=== PATIENT | female | born 1960 | race Caucasian/White ===

== ENCOUNTER 2017-03-05 19:18 | Inpatient (IN) | payer OTHER ==
[~2017-03-05] VITALS: Ht 162.6 cm; Wt 54.9 kg
[2017-03-05] MEDS ORDERED: HYDR2TAB4 PO (19:37)
[2017-03-05] MEDS ORDERED: VALIUM (19:37)
[2017-03-05] MEDS ORDERED: METO25TA6 PO (19:37)
[2017-03-05] MEDS ORDERED: IBUP-1957 PO (19:37)
--- NOTE | 2017-03-05 19:39 | NUR ---
PATIENT BIB AMBULANCE FROM [facility] FOR PSYCH EVAL. PATIENT WAS DISCHARGED FROM [facility] EARLIER TONIGHT. PATIENT WAS NOT TOLD SHE IS BEING BROUGHT TO THIS HOSPITAL FOR PSYCH EVAL. PATIENT IS UPSET AND UNCOOPERATIVE AT THIS TIME. PATIENT IS SITTING ON THE AMBULANCE GURNEY AND DOES NOT WANT TO SIT ON HOSPITAL BED. GEAR GENERATOR SET UP OPERATOR CONTACTED AND WILL BE HERE IN 30 MINUTES FOR EVALUATION.
--- NOTE | 2017-03-05 19:40 | NUR ---
PATIENT IS REFUSING TO HAVE BLOOD DRAWN OR VS TAKEN.
--- NOTE | 2017-03-05 20:08 | NUR ---
PATIENT APPEARS CALM AT THIS TIME. SITTING ON [facility] TALKING ON THE PHONE. CRISIS DOWEL MACHINE OPERATOR HERE REVIEWING PATIENT CHART.
--- NOTE | 2017-03-05 20:13 | NUR ---
CRISIS AUTISTIC TEACHER AT BEDSIDE TALKING TO PATIENT.
--- NOTE | 2017-03-05 20:49 | NUR ---
PATIENT IS STILL REFUSING TO HAVE BLOOD WORK DONE.
[2017-03-05 21:25] LABS: BASOPHILS % (AUTO) 0.5 % (0.0-2.0); EOSINOPHILS # (AUTO) 0.4 K/uL (0.0-0.7); EOSINOPHILS % (AUTO) 5.9 % (0.0-7.0); HEMATOCRIT 39.3 % (31.2-41.9); HEMOGLOBIN 13.5 g/dL (10.9-14.3); LYMPHOCYTES # (AUTO) 2.4 K/uL (20.0-40.0); LYMPHOCYTES % (AUTO) 34.7 % (20.5-51.5); MEAN CORPUSCULAR HEMOGLOBIN 31.9 uug (24.7-32.8); MEAN CORPUSCULAR HGB CONC 34 g/dL (32.3-35.6); MEAN CORPUSCULAR VOLUME 92.7 fL (75.5-95.3); MONOCYTES # (AUTO) 0.6 K/uL (2.0-10.0); MONOCYTES % (AUTO) 8.2 % (0.0-11.0); NEUTROPHILS # (AUTO) 3.5 K/uL (1.8-8.9); NEUTROPHILS % (AUTO) 50.7 % (38.5-71.5); PLATELET COUNT (AUTO) 238 K/uL (179-408); RED BLOOD CELL COUNT(AUTO) 4.24 MIL/uL (3.63-4.92); WHITE BLOOD COUNT (AUTO) 6.9 K/uL (3.8-11.8)
[2017-03-05 21:30] LABS: CARBON DIOXIDE 31 mmol/L (21-32); CHLORIDE 105 mmol/L (98-107); CREATININE 0.8 mg/dL (0.6-1.3); GLUCOSE 117 mg/dL (74-106); POTASSIUM 4.1 mmol/L (3.5-5.1); UREA NITROGEN, BLOOD 25 mg/dL (7-18)
--- NOTE | 2017-03-05 21:33 | NUR ---
PATIENT IS UNABLE TO PROVIDE URINE SAMPLE AT THIS TIME.
[2017-03-05 21:36] LABS: ALANINE AMINOTRANSFERASE 56 U/L (14-59); ALKALINE PHOSPHATASE 92 U/L (50-136); ASPARTATE AMINOTRANSFERASE 28 U/L (15-37); BILIRUBIN,DIRECT 0.1 mg/dL (0.0-0.2); BILIRUBIN,TOTAL 0.2 mg/dL (0.2-1.0); TOTAL PROTEIN, SERUM 7.3 g/dL (6.4-8.2)
[2017-03-05 21:37] LABS: ACETAMINOPHEN < 2.0 ug/mL (10-30)
[2017-03-05 21:40] LABS: ETHANOL < 3 MG/DL (0-0)
[2017-03-05 21:59] LABS: THYROID STIMULATING HORMONE 0.991 mIU/mL (0.358-3.740)
--- NOTE | 2017-03-05 22:30 | NUR ---
Pt. admitted to MHU , under care of Dr. CLAUDIO Belongs List completed.
[2017-03-05] MEDS ORDERED: TEMAZEPAM 7.5 MG CAPSULE PO PRN (23:00)
[2017-03-05] MEDS ORDERED: LORAZEPAM 0.5 MG TABLET PO PRN (23:00)
[2017-03-05] MEDS ORDERED: MAG HYDROX/AL HYDROX/SIMETH 30 ML LIQUID UDC PO PRN (23:00)
[2017-03-05] MEDS ORDERED: MAGNESIUM HYDROXIDE 30 ML LIQUID UDC PO PRN (23:00)
[2017-03-05 23:10] VITALS: BP 121/83
[2017-03-05] MEDS ORDERED: LORAZEPAM 0.5 MG TABLET ONE (23:57)
--- NOTE | 2017-03-06 | NUR ---
ADMISSION NOTE: 56 Y.O FEMALE BROUGHT TO MHU ON A 5150 FOR GD. Pt BROUGHT VIA GURNEY ACCOMPANIED BY ER STAFF. ACCORDING TO THE HOLD, Pt WAS PREVIOUSLY AT [facility] AND EXPERIENCING ANXIETY AND DELUSIONAL THINKING. DURING PET ASSESSMENT, Pt WAS PREOCCUPIED WITH DIFFERENT SOMATIC COMPLAINTS (PAIN IN THE BAS EOF HER NECK). Pt STATED THAT A PLASTIC SPEAR IS COMING OUT OF HER SKIN THAT WAS WITNESSED BY HER CAREGIVER. Pt ALSO TALKING ABOUT MOLECULES GOING TO THE CAP OF HER TEETH. Pt THINKS CRYSTAL PARTICLES ARE COMING OUT OF HER BACK. Pt HAS PREVIOUS H/O INPATIENT PSYCHIATRIC TREATMENT IN THE PAST. Pt APPEARS TO REFLECT WHAT IS ON THE HOLD, RN CONCURS WITH HOLD. ADVISEMENT AND PATIENT RIGHTS HANDBOOK GIVEN. UPON FACE TO FACE ASSESSMENT. Pt IS VERY TANGENTIAL, HYPERVERBAL, ANXIOUS, AGITATED, LABILE, TEARFUL, WITH MOMENTS OF SCREAMING AND CRYING. Pt IS A+Ox2 TO NAME AND PLACE, UNABLE TO RECALL DAY OR DATE, BUT IS AWARE OF THE MONTH. Pt IS DELUSIONAL WITH FLIGHT OF IDEAS, WITH A FIXED DELUSION THAT "MEDICAL EQUIPMENT WAS LEFT IN MY SPINE, A PLASTIC TUBE. THE PLASTIC IS NOW COMING OUT OF MY SKIN AND ALSO WHEN I GO TO THE BATHROOM. MY CAREGIVERS, MY PSYCHIATRIST, AND OTHER NURSES HAVE SEEN IT, I'M NOT CRAZY." Pt STATES SHE IS "HERE BECAUSE I HAVE PAIN AND WAS TOLD I WAS GOING TO THE [facility], NOT THE PSYCH UNIT". Pt EXHIBITS PRESSURED SPEECH WITH ALTERNATING FLAT AND SUPERFICIALLY BRIGHT AFFECT. Pt IS FOCUSED ON SOMATIC SYMPTOMS, AND ASKED SEVERAL TIMES FOR HER "DILAUDID SHOT". WHEN TOLD THAT IF THE MD MADE THE DECISION TO ORDER DILAUDID FOR HER, IT WOULD BE GIVEN BY MOUTH, NOT BY SHOT, Pt BECAME HYSTERICAL AND BEGAN SCREAMING AND CRYING. Pt WAS SOMEWHAT CALMED AFTER SHE WAS TOLD THAT SHE WOULD GET DILAUDID (PO) FOR HER "10/10" BACK PAIN. Pt DENIES AH/VH, BUT STATED, "I HEAR GOD'S VOICE. I ALMOST DROWNED ONCE AND IS VOICE SAVE ME". Pt APPEARS EXTREMELY INTERNALLY PREOCCUPIED. Pt DENIES SI/HI, AND CFS. Pt STATED "I'M SAD, NOT DEPRESSED". Pt STATED SHE HAD A PREVIOUS PSYCH HOSPITALIZATION 3 MONTHS AGO. UPON INVENTORYING HER BELONGINGS, Pt HAD A BOX CONTAINING SEVERAL LABELED ZIP LOCK BAGS CONTAINING TISSUES WITH FECES, URINE, SALIVA, MUCUS, HAIR, AND FINGERNAILS. Pt STATED THE "PLASTIC PIECES CAN BE FOUND IN THERE, MY CAREGIVERS SAW IT". ITEMS WERE EXAMINED BY RN IN FRONT OF HER WITH OTHER STAFF PRESENT, NOT SUCH PLASTIC ARTICLES WERE FOUND. Pt DEMANDED THE BOX NOT BE THROWN AWAY, BOX PLACED WITH OTHER BELONGINGS. Pt ALSO STATES SHE IS ON A SOFT DIET D/T A "FROZEN TRACHEA". Pt REFUSED VACCINES SITING THAT "THEY WILL MAKE ME SICK". Pt UNABLE TO SIGN PAPERWORK D/T MENTAL STATUS, BUT GAVE VERBAL PERMISSION TO HAVE HER PHOTO TAKEN, AND ALSO TO CALL HER SON BIBI. Pt DENIES ANY ETOH OR SUBSTANCE ABUSE. ALL BELONGINGS INVENTORIED AND PLACED IN UNIT LOCKER. DR CLAUDIO AND NICK IVEY NOTIFIED OF ADMISSION, ORDERS RECEIVED. NICK IVEY OK'd ADMINISTERING DILAUDID D/T THE FACT IT HAD BEEN ADMINISTERED SEVERAL TIMES PREVIOUSLY WITH NO ADVERSE EFFECT. Pt ALSO DENIES HAVING AND ALLERGY TO CODEINE WHEN SPEAKING WITH RN. Pt EDUCATED REGARDING UNIT RULES AND SAFETY, MAY NEED REINFORCEMENT. Pt AMBULATES WITH UNSTEADY GAIT, IS A FALL RISK. VS STABLE. WILL CONTINUE TO MONITOR.
[2017-03-06] MEDS: HYDROMORPHONE HCL 2 MG TABLET PO PRN ×4 (00:31→20:36)
[2017-03-06] MEDS ORDERED: HYDROMORPHONE HCL 2 MG TABLET ONE ×3 (00:42→06:13)
--- NOTE | 2017-03-06 11:52 | NUR ---
PT CURRENTLY LYING IN BED, EASILY IRRITABLE, C/O PAIN. NURSE WENT TO ADMINISTER DILAUDED ORDERED, BUT PT ADAMANTLY REFUSED, DEMANDING 4MG DILAUDED. STATES HER PAIN IS "ON MY BACK, MY NECK, MY MOUTH, EVERYWHERE." PT IS NOTED TO BE HIGHLY DELUSIONAL, STATING "...BECAUSE THEY LEFT MEDICAL MATERIALS ALL OVER MY BODY, AND ITS DISSOLVING EVERYWHERE. YOU THINK I'M JUST CRAZY? LOOK, TOUCH MY GUMS, IT'S HARD! IT'S FROM ALL THE MATERIALS LEFT BEHIND." REORIENTED TO REALITY. CONTINUES TO BE QUITE FIXATED ON DELUSIONS. WASTED DILAUDED WITH WITNESS PER PROTOCOL.
[2017-03-06 15:00] VITALS: BP 122/75
[2017-03-06 20:00] VITALS: BP 116/81
[2017-03-06] MEDS: risperiDONE 1 MG TABLET PO SCH (22:00)
[2017-03-07] MEDS: HYDROMORPHONE HCL 2 MG TABLET PO PRN ×4 (03:22→18:52)
--- NOTE | 2017-03-07 03:40 | NUR ---
Pt CAME OUT OF HER ROOM CRYING AND DEMANDING DILAUDID. UPON RN ADMINISTERING 1mg OF DILAUDID ORDERED, Pt BECAME VERY ANGRY AND YELLED, " YOU'RE NOT EVEN GIVING ME 1 WHOLE MILLIGRAM??" Pt WAS AGAIN RE-EDUCATED ABOUT HER ORDERED DOSAGE, WHICH IS 1mg, ONE HALF OF A 2mg TAB. Pt DID NOT LIKE THIS INFORMATION AND STATED IRRITABLY, "THIS STUPID FUCKING DOCTOR WON'T EVEN GIVE ME A WHOLE GOD DAMN PILL! FUCKING IDIOT!". 1mg DILAUDID ADMINISTERED, REDIRECTION PROVIDED.
--- NOTE | 2017-03-07 06:51 | NUR ---
RECEIVED Pt IN BED AWAKE, A+Ox2 TO NAME AND PLACE. UNABLE TO STATE THE DATE/DAY. IMMEDIATELY UPON RN ENTERING THE ROOM, Pt BEGAN CRYING AND YELLING THAT SHE IS IN "SO MUCH PAIN AND NO ONE WILL HELP ME, NO ONE BELIEVES ME, I'M NOT CRAZY!" Pt CONTINUES TO HAVE A FIXED DELUSION THE PLASTIC IS COMING OUT OF HER SKIN AND URINE, AND PERSEVERATES ON THIS SUBJECT. Pt IS HYPER-FOCUSED ON PERCEIVED SOMATIC SYMPTOMS AND ATTEMPTS TO STAFF SPLIT, STATING, "THE DAY NURSE WOULD NOT GIVE ME MY PAIN MEDICATIONS, I THINK SHE IS TAKING THEM!" Pt STATES SHE HAS A "FROZEN TRACHEA" AND CANNOT EAT OR DRINK. Pt IS ANXIOUS, TANGENTIAL, HISTRIONIC, LABILE, TEARFUL, AND AGITATED. Pt IS ALTERNATELY HYPERVERBAL AND SELECTIVELY MUTE WITH PRESSURED SPEECH AND FLAT AFFECT. Pt REFUSED HS PSYCH MEDICATIONS YELLING, "I DON'T NEED THOSE, I'M NOT PSYCHOTIC!" Pt REQUESTED 4mg OF DILAUDID FOR 10/10 GENERALIZED BODY PAIN, AND Pt WAS EDUCATED ABOUT HER ORDERED DOSE OF 1mg, SHE SAID "I GUESS I'LL JUST TAKE THAT THEN". DOSE ADMINISTERED WITH RN ASSIST, Pt STATED SHE WAS UNABLE TO HOLD A CUP OR SWALLOW THE MEDICATION HERSELF DUE TO "EXTREME PAIN". Pt IS ATTENTION-SEEKING, AND NEEDY WITH PAIN MEDICATIONS, DESPITE EDUCATION PROVIDED REGARDING, SAFETY, DOSAGE, AND FREQUENCY. Pt IS UNCOOPERATIVE, ARGUMENTATIVE, AND OPPOSITIONAL. POOR INSIGHT AND IMPAIRED JUDGEMENT, NO REALISTIC PLAN FOR SELF CARE. VS STABLE. SHOWERED THIS AM.
[2017-03-07 07:30] VITALS: BP 127/81
[2017-03-07] MEDS: risperiDONE 1 MG TABLET PO SCH ×2 (09:00→21:12)
[2017-03-07] MEDS: FLUVOXAMINE MALEATE 25 MG TABLET PO SCH ×3 (09:00→17:00)
[2017-03-07 15:00] VITALS: BP 120/78
--- NOTE | 2017-03-07 17:14 | NUR ---
GPS: Nursing Notes: Thought Disorder: Patient is awake and responding to her name, impaired judgment, A/Ox3, loud and anxious affect, hyperverbal, believes that plastic materials are coming from her skin, believes that she is not psychotic and depressed, stated, "A lot of people saw those plastic materials... I am not lying..", redirected and reoriented to reality during shift, but patient continue to be paranoid and having visual hallucinations, refusing her psych. medications, constantly asking for Dilaudid and accusing staff of taking the rest of her Dilaudid, stated, "I suppose to get 4mg and not 1mg....", unable to formulate a viable plan for self care, resistant with nursing care, overly demanding at times, manipulative behavior, saying one thing to one staff and another thing to another staff, continue with treatment plan.
[2017-03-07 19:30] VITALS: BP 119/74
--- NOTE | 2017-03-07 22:08 | NUR ---
Received patient in the day room. she is A/O x 2. Patient noted with somatic delusional thinking and having VA. she is fixed that "plastic-like bubbles are coming out with her urine". she also stated that her "teeth are coming out". She was also noted preoccupied with her admission to MHU, and anxious to talk to the geriatric social worker. She states, "there is a mistake that I am here". However, patient was compliant with [facility] medication.
--- NOTE | 2017-03-08 06:52 | NUR ---
DURING THE NIGHT, PATIENT ASKED THE NURSE TO OBSERVED HER URINE IN THE TOILET. IT WAS NOTED SMALL PIECES OF PLASTIC CLEAR WRAPPER. UPON INSPECTION OF HER BED SIDE TABLE, IT WAS NOTED SMALL PIECES OF PLASTIC CLEAR WRAPPER. WHEN THE PATIENT WAS ASKED IF SHE PUT THESE PIECES OF PAPER INSIDE THE TOILET WHERE SHE URINATE, SHE DID NOT ANSWER. PATIENT SLEPT FOR APPROX 7.00HRS THROUGH THE NIGHT.
[2017-03-08] MEDS: HYDROMORPHONE HCL 2 MG TABLET PO PRN ×4 (07:43→20:46)
[2017-03-08] MEDS: ACETAMINOPHEN 325 MG TABLET PO PRN (07:43)
[2017-03-08 08:17] VITALS: BP 102/56
[2017-03-08] MEDS: FLUVOXAMINE MALEATE 25 MG TABLET PO SCH ×3 (08:43→16:25)
[2017-03-08] MEDS: risperiDONE 1 MG TABLET PO SCH ×2 (08:43→20:44)
--- NOTE | 2017-03-08 14:51 | NUR ---
Initial DC Plan: Patient currently lives at home with roommates and has 24 hour caregivers [[facility] [place] [address];[phone]]. SW will follow up with MD, patient, and patient's field case manager Jeana [[phone]] to discuss most appropriate discharge plans. SW will form a safe and proper discharge.
--- NOTE | 2017-03-08 15:54 | NUR ---
UR Note: JODIE faxed clinicals to [employer] at [employer] [FAX# [phone]; [phone] X [phone]]. Awaiting authorization.
[2017-03-08 16:28] VITALS: BP 115/81
[2017-03-08 21:23] VITALS: BP 115/87
--- NOTE | 2017-03-08 22:00 | NUR ---
received to care, sitting in her room, isolative, but pleasant upon approach. compliant with medications and staff direction. mostly appropriate, but continues to believe there are "medical materials" inside her body. states "just feel my gums. you can feel the plastic coming through my mouth" reassurance and reality orientation provided. PRN dilaudid 1 mg given at 2045. as of 2199, she reports moderate relief, but remains awake. will continue to monitor closely.
--- NOTE | 2017-03-08 22:31 | NUR ---
PRN restoril given for insomnia
[2017-03-09] MEDS: ACETAMINOPHEN 325 MG TABLET PO PRN ×2 (00:44→13:22)
[2017-03-09] MEDS: HYDROMORPHONE HCL 2 MG TABLET PO PRN ×2 (02:47→09:15)
[2017-03-09 07:30] VITALS: BP 95/60
[2017-03-09] MEDS: risperiDONE 1 MG TABLET PO SCH (08:48)
[2017-03-09] MEDS: FLUVOXAMINE MALEATE 25 MG TABLET PO SCH ×2 (08:49→12:44)
--- NOTE | 2017-03-09 11:09 | NUR ---
DC Note: Patient will be discharged home [[address] [place] [address]; [phone]] via private transportation at 12:30pm. JODIE spoke with patient's clinical case manager Jeana [[phone]] who arranged transportation through [facility] [[phone]; Claim #[id number]]. Patient has 24 hour caregiving at home. Patient is aware and agreeable to discharge plans. JODIE notified Genna at patient's caregiving agency [address] [place] [address] [[phone]] that patient will be discharging today. Patient will follow up with her psychiatrist Dr. Forbes [[phone]]. She has an appointment with Dr. Forbes on March 16 at 3:30pm. Patient was provided referrals for internists including [facility] [ ] and [facility] [ ].
--- NOTE | 2017-03-09 13:00 | NUR ---
GPS: Nursing Notes: Discharge Notes: Patient is awake and responding to her name, compliant with her medications today, cooperative with nursing care, participating in therapeutic groups, cooperative with nursing care, denies any pain or discomfort, denies any SI/HI, denies any AH/VH, denies any SOB, discharge home with 24 hrs. caregiver, prescription and instructions given to patient. JODIE spoke with patient's rn field case manager Jeana [[phone]] who arranged transportation through [facility] [[phone]; Claim #[id number]]. Patient has 24 hour caregiving at home. Patient is aware and agreeable to discharge plans. JODIE notified Genna at patient's caregiving agency [address] [place] [address] [[phone]] that patient will be discharging today. Patient will follow up with her psychiatrist Dr. Forbes [[phone]]. She has an appointment with Dr. Forbes on March 16 at 3:30pm. Patient was provided referrals for internists including [facility] [ ] and [facility] [ ].
== END 2017-03-09 13:10 | disposition home or self-care (01) | DRG 885 ==
LOC: ER 19:19 → GPS 22:47
PROVIDERS: ADMIT Psychiatry & Neurology Psychiatry; ATTEND Internal Medicine
DX: F29 Unspecified psychosis not due to a substance or known physiological condition (principal); E78.5 Hyperlipidemia, unspecified; F32.9 Major depressive disorder, single episode, unspecified; F41.9 Anxiety disorder, unspecified; G89.4 Chronic pain syndrome; I10 Essential (primary) hypertension; I34.1 Nonrheumatic mitral (valve) prolapse; J45.909 Unspecified asthma, uncomplicated; M79.7 Fibromyalgia; M81.0 Age-related osteoporosis without current pathological fracture; Z90.710 Acquired absence of both cervix and uterus; E89.0 Postprocedural hypothyroidism; R73.9 Hyperglycemia, unspecified
CPT/HCPCS: 36415; 84443; 85025; A4663; G0480; G0480-TC